=== PATIENT | female | born 1965 | race Two or more races ===

== ENCOUNTER 2021-10-06 06:33 | Day surgery (SDC) | payer OTHER ==
[2021-10-06] MEDS ORDERED: PEPCID20 MG PO (10:19)
== END 2021-10-06 11:35 | disposition home or self-care (01) ==
LOC: AMB-ENDOS 06:33
PROVIDERS: ATTEND Surgery
DX: K30 Functional dyspepsia (principal); K29.60 Other gastritis without bleeding; Z20.822 Contact with and (suspected) exposure to COVID-19

== ENCOUNTER 2021-12-12 07:31 | Outpatient (CLI) | payer OTHER ==
[~2021-12-12 07:31] MED LIST: PEPCID20 MG PO
== END 2021-12-12 07:36 | disposition home or self-care (01) ==
LOC: NUCLEAR 07:31
PROVIDERS: ATTEND Specialist
DX: I20.9 Angina pectoris, unspecified (principal)